=== PATIENT | male | born 1940 | race Hispanic/Latino ===

== ENCOUNTER → 2024-07-05 | Outpatient (CLI) | payer OTHER ==
--- NOTE | 2024-07-07 16:12 | HMCSR ---
APPROVED REPORT EXAM: Two-dimensional and M-mode echocardiogram with Doppler and color Doppler. INDICATION ICD: R01.1 Cardiac murmur, unspecified RISK FACTORS Hypertension Hyperlipidemia Diabetes 2D Dimensions RVDd4.3 cmLVEF(%)59.6 (>50%)LVED Vol(simp.)145.0 mL IVSd1.2 (0.7-1.1cm)FS(%)32 %LVES Vol(simp.)61.0 mL LVDd5.0 (3.8-5.6cm)Ao Root(2D)3.2 (2.0-3.7cm)LVEF(%, simp.)58 % PWd1.2 (0.7-1.1cm)LVOT diam2.1 (1.8-2.4cm)LA ESV INDEX (BP)48.24 mL/m2 LVDs3.4 (2.5-4.0cm)IVC diam2.6 cm Deformation Strain Apical 4-13.9 % Apical 2-15.9 % Apical 3-16.2 % Global Strain-15.3 % Aortic Valve AoV Vmax1.9 m/Marvin Peak GR14.5 mmHgLVOT Vmax1.0 m/s AoV VTI0.5 mAo Mean GR7.6 mmHgLVOT VTI0.25 m NEGRO (VMAX)1.9 cm2AVA (VTI) 1.9 cm2 Mitral Valve MV E Stkx751.0 cm/sDECEL Neaz532 msMV Peak GR14 mmHg MR Max PG125 mmHgP 1/2 T59 msMV Mean GR4 mmHg MVA (PHT)3.8 cm2MVA (VTI)2.1 cm2 TDI E/E' Pmjesg12.9E/E' Stvjeze58.5 Pulmonary Valve PV Vmax1.4 m/sPV VTI0.29 mPV Mean GR4 mmHg PV Peak GR7.9 mmHgPI End Hazel. Mitchell 1.1 cm/s Tricuspid Valve TR Vmax3.3 m/sRAP (EST) 15 qpGrSEAB97.2 mmHg TR Peak GR44.2 mmHg Left Ventricle Left ventricular cavity size is normal. No definite wall motion abnormality. There is mild concentric left ventricular hypertrophy. LVEF is difficult to estimate accurately, possibly 55%. GLS rate is -1 5.3%. Indeterminate diastolic dysfunction due to atrial fibrillation. Right Ventricle The right ventricle is dilated. The right ventricular systolic function is normal. Atria The left atrium is severely dilated. The right atrium is dilated. Aortic Valve Aortic valve is trileaflet. The aortic valve is mildly thickened but opens well. Trace aortic regurgi tation. Calculated aortic valve area is 1.9 cm2 with maximum pressure gradient of 14.5 mmHg and mean pressure gradient of 7.6 mmHg. Mitral Valve Mitral valve leaflets are sclerotic but open well. Mitral regurgitation is eccentrically directed wit h Vena Contracta 1 cm, severe. There is no mitral valve stenosis. Tricuspid Valve The tricuspid valve leaflets appear normal. There is moderate tricuspid regurgitation. Right ventricu lar systolic pressure is estimated at 50-60 mmHg. Pulmonic Valve The pulmonic valve leaflets are thin and pliable; valve motion is normal. There is mild valvular regu rgitation. Great Vessels The aortic root is normal in size. IVC is dilated and collapses <50% with inspiration. Pericardium The pericardium appears hyperreflectant, with trivial pericardial effusion. There is evidence of a pl eural effusion. Conclusion LVEF is difficult to estimate accurately, possibly 55%. GLS rate is -15.3%. The right ventricle is dilated. The left atrium is severely dilated. The right atrium is dilated. Calculated aortic valve area is 1.9 cm2 with maximum pressure gradient of 14.5 mmHg and mean pressure gradient of 7.6 mmHg. Trace aortic regurgitation. Mitral regurgitation is eccentrically directed with Vena Contracta 1 cm, severe. There is moderate tricuspid regurgitation. Right ventricular systolic pressure is estimated at 50-60 mmHg. IVC is dilated and collapses <50% with inspiration. The pericardium appears hyperreflectant, with trivial pericardial effusion.
== END | disposition home or self-care (01) ==
LOC: SHCH 14:48
PROVIDERS: ATTEND Internal Medicine Cardiovascular Disease
DX: I08.3 Combined rheumatic disorders of mitral, aortic and tricuspid valves (principal); I11.9 Hypertensive heart disease without heart failure; E11.9 Type 2 diabetes mellitus without complications; E78.5 Hyperlipidemia, unspecified; I48.91 Unspecified atrial fibrillation; J90 Pleural effusion, not elsewhere classified; R01.1 Cardiac murmur, unspecified
CPT/HCPCS: 93306; 93356

== ENCOUNTER → 2024-08-24 | Outpatient (CLI) | payer OTHER ==
[~2024-08-24] MED LIST: AMLO-257 PO; APIX5TAB PO; ASPI-1197 PO; DAPA5TAB PO; FURO20TA4 PO; OXYB15TA19 PO; SACU1TAB7 PO; SPIR25TA6 PO; TERA10CA4 PO
[2024-08-24 12:48] LABS: CREATININE 1.1 mg/dL (0.5-1.3); POTASSIUM 4.7 mmol/L (3.5-5.1)
== END | disposition home or self-care (01) ==
LOC: LAB 10:11
PROVIDERS: ATTEND Internal Medicine Cardiovascular Disease
DX: I48.19 Other persistent atrial fibrillation (principal); I27.20 Pulmonary hypertension, unspecified; I50.32 Chronic diastolic (congestive) heart failure
CPT/HCPCS: 36415; 80048; 83880

== ENCOUNTER → 2024-10-13 | Outpatient (CLI) | payer OTHER ==
[2024-10-13 16:26] LABS: CREATININE 1.1 mg/dL (0.5-1.3); POTASSIUM 5.4 mmol/L (3.5-5.1)
== END | disposition home or self-care (01) ==
LOC: LAB 15:43
PROVIDERS: ATTEND Internal Medicine Cardiovascular Disease
DX: I50.22 Chronic systolic (congestive) heart failure (principal)
CPT/HCPCS: 36415; 80048

== ENCOUNTER → 2024-12-23 | Outpatient (CLI) | payer OTHER ==
[2024-12-23 16:39] LABS: CREATININE 1.3 mg/dL (0.5-1.3); POTASSIUM 4.7 mmol/L (3.5-5.1)
== END | disposition home or self-care (01) ==
LOC: LAB 11:46
PROVIDERS: ATTEND Internal Medicine Cardiovascular Disease
DX: E87.5 Hyperkalemia (principal); I50.22 Chronic systolic (congestive) heart failure
CPT/HCPCS: 36415; 80048; 83880